=== PATIENT | male | born 1960 | race Caucasian/White ===

== ENCOUNTER 2023-09-16 12:32 | Day surgery (SDC) | payer MEDICARE, OTHER ==
[2023-09-15 10:48] VITALS: BMI 48.5
--- NOTE | 2023-09-16 11:53 | P.HPIHPCON ---
History of Present Illness H&P Date: 09/16/23 Chief Complaint: Elevated PSA This is a 62-year-old male with history of elevated PSA greater than 4000. On imaging there is evidence of metastatic disease. Discussed with him I recommend proceeding with a prostate biopsy to confirm the diagnosis of prostate cancer. Aware of the risk which includes bleeding, infection Consent for Procedure: I have explained the operation/procedure to the patient, including the risks, benefits, side effects, alternative therapies (including not receiving the proposed treatment or service), the likelihood of the patient achieving his/her goals, and potential recuperation problems for the procedure/sedation/analgesia, as well as any blood products, if indicated. I also explained to the patient the risks, benefits and side effects of the alternatives, as well as the risks related to not receiving the proposed procedure, care, treatment, or services. Past Medical History Past Medical History: Hypertension Additional Past Medical History / Comment(s): UTI & Blood in urine. Takes Metformin for weight loss. Just finished an antxb. for a UTI. Recently a patient at [facility]. History of Any Multi-Drug Resistant Organisms: None Reported Past Surgical History: Appendectomy, Tonsillectomy Past Anesthesia/Blood Transfusion Reactions: No Reported Reaction Smoking Status: Former smoker - Past Family History Mother Family Medical History: Cancer Medications and Allergies Home Medications Medication Instructions Recorded Confirmed Type ALPRAZolam [Xanax] 0.5 mg PO BID PRN 09/15/23 09/15/23 History Apixaban [Eliquis] 5 mg PO BID 09/15/23 09/15/23 History Diltiazem Oral [Cardizem Oral] 60 mg PO BID 09/15/23 09/15/23 History HYDROcodone/APAP 7.5-325MG [Etlan 1 tab PO Q6HR PRN 09/15/23 09/15/23 History 7.5-325] Metoprolol Tartrate [Lopressor] 50 mg PO BID 09/15/23 09/15/23 History Tamsulosin HCl [Flomax] 0.4 mg PO DAILY 09/15/23 09/15/23 History metFORMIN HCL 500 mg PO BID 09/15/23 09/15/23 History Allergies Allergy/AdvReac Type Severity Reaction Status Date / Time unknown Allergy Unknown Uncoded 09/15/23 10:58 Surgical - Exam - General no distress, no pain - Respiratory normal expansion, normal respiratory effort - Abdomen Abdomen: soft, non tender Assessment and Plan Assessment: OR for transrectal ultrasound of the prostate
[~2023-09-16 12:32] MED LIST: DEXAMETHASONE SOD PHOSPHATE 4 MG/ML 1 ML VIAL IV ONE; GENTAMICIN 140 MG in SODIUM CHLORIDE 0.9% 100 ML IVPB PRN; HYDROmorphone 0.5 MG/0.5 ML SYRINGE IVP PRN; LACTATED RINGERS 1,000 ML IV SCH; LIDOCAINE 1% (10MG/ML) FOR IV START INTRADERMA PRN; MIDAZOLAM 2 MG/2 ML VIAL IV PRN; ONDANSETRON 4 MG/2 ML VIAL IVP ONE
[2023-09-16 13:24] LABS: Glucose,Whole Blood 128 mg/dL (70-110)
[2023-09-16] MEDS ORDERED: MIDAZOLAM 2 MG/2 ML VIAL ONE (13:43)
[2023-09-16] MEDS ORDERED: PROPOFOL 10 MG/ML 20 ML VIAL IV ONE (13:43)
[2023-09-16] MEDS ORDERED: KETAMINE HCL IN 0.9 % NACL 50 MG/5 ML SYRINGE ONE (13:43)
[2023-09-16] MEDS ORDERED: fentaNYL (PF) 50 MCG/ML 2 ML AMP ONE (13:43)
--- NOTE | 2023-09-16 13:55 | P.OP ---
Date of Procedure: 09/16/23 Preoperative Diagnosis: Elevated PSA Postoperative Diagnosis: Same Procedure(s) Performed: Transrectal ultrasound, prostate biopsies Anesthesia: MAC Surgeon: Roge Solano Estimated Blood Loss (ml): 1 Pathology: other (Prostate biopsies) Condition: stable Disposition: PACU Indications for Procedure: This is a 62-year-old male with history of elevated PSA greater than 4000. On imaging there is evidence of metastatic disease. Discussed with him I recommend proceeding with a prostate biopsy to confirm the diagnosis of prostate cancer. Aware of the risk which includes bleeding, infection Description of Procedure: The patient was taken to the operating room and placed in the left lateral decubitus position. The [employer] transrectal ultrasound probe was placed intrarectally. . The prostate was imaged in both the axial and sagittal planes. Prostate was 20 g. The entire prostate was heterogeneous, there was a large hypoechoic area along the left base with invasion into the bladder. Using the Biopsy gun, 6 biopsies of the peripheral zone were obtained, 3 biopsies from the right side and 3 biopsy of the left side were obtained. Once the procedure was completed, the ultrasound probe was removed. The patient tolerated the procedure well was taken to the recovery room stable condition
[2023-09-16 14:14] VITALS: RESP 14; TEMP 97.9
[2023-09-16] MEDS ORDERED: METOPROLOL TARTRATE 5 MG/5 ML VIAL IVP ONE (14:37)
[2023-09-16 15:31] VITALS: BP 102/65; PULSE 105
== END 2023-09-16 15:38 | disposition home or self-care (01) ==
LOC: OR 12:32
PROVIDERS: ATTEND Urology
DX: C61 Malignant neoplasm of prostate (principal)
CPT/HCPCS: 55700; 88305; J2250; J1100; J2405; J3010; J1580; J2704